=== PATIENT | male | born 2000 | race Hispanic/Latino ===

== ENCOUNTER 2019-12-02 12:09 | Emergency (ER) | payer MEDICAID ==
[2019-12-02] MEDS ORDERED: Bacitracin 1 PK ONE (12:33)
[2019-12-02] MEDS ORDERED: Adacel (T-DAP) 0.5 ML SYRINGE ONE (12:35)
== END 2019-12-02 12:58 | disposition home or self-care (01) ==
LOC: NAV ERS 12:09
DX: S60.410A Abrasion of right index finger, initial encounter (principal); S90.511A Abrasion, right ankle, initial encounter; F31.9 Bipolar disorder, unspecified; F90.9 Attention-deficit hyperactivity disorder, unspecified type; F25.9 Schizoaffective disorder, unspecified; W25.XXXA Contact with sharp glass, initial encounter; F17.210 Nicotine dependence, cigarettes, uncomplicated
CPT/HCPCS: 90715; 99283